=== PATIENT | male | born 1990 | race Caucasian/White ===

== ENCOUNTER → 2020-03-22 | Emergency (ER) | payer OTHER ==
[~2020-03-22] VITALS: Ht 172.7 cm; Wt 79.4 kg
[~2020-03-22] MED LIST: ACETAMINOPHEN 500 MG TAB PO ONE; IBUPROFEN 800 MG TAB PO ONE
[2020-03-22 23:33] VITALS: BP 114/81
== END | disposition home or self-care (01) ==
LOC: ER 21:09 → EEVIPCON 21:09
DX: S32.009A Unspecified fracture of unspecified lumbar vertebra, initial encounter for closed fracture (principal); S30.1XXA Contusion of abdominal wall, initial encounter; S09.8XXA Other specified injuries of head, initial encounter; K04.7 Periapical abscess without sinus; Y04.0XXA Assault by unarmed brawl or fight, initial encounter; Y93.89 Activity, other specified; Y92.89 Other specified places as the place of occurrence of the external cause; Y99.8 Other external cause status
CPT/HCPCS: 70450; 70486; 71250; 72125; 74176